=== PATIENT | male | born 1950 | race Caucasian/White ===

== ENCOUNTER 2016-08-24 05:51 | Inpatient (IN) | payer OTHER ==
[~2016-08-24] VITALS: Ht 172.7 cm; Wt 83.9 kg
[~2016-08-24 05:51] MED LIST: ALEVE220 MG PO; COLACE100 MG PO; COUMADIN2.5 MG PO; FEOSOL325 MG PO; FERROUS SULFAT325 MG PO; HYDROMORPHONE HC2 MG PO; LOVENOX30 MG/0.3 SC; MEPHYTON5 MG PO; PERCOCET 5/31 TABLET PO; VISTARIL25 MG PO; ZYLOPRIM100 MG PO
[2016-08-24 06:28] VITALS: BP 155/90
[2016-08-24] MEDS ORDERED: COUMADIN2.5 MG PO (09:58)
[2016-08-24] MEDS ORDERED: VISTARIL25 MG PO (09:58)
[2016-08-24] MEDS ORDERED: PERCOCET 5/31 TABLET PO (09:58)
[2016-08-24 11:45] VITALS: BP 108/90
[2016-08-24 15:40] VITALS: BP 137/78
[2016-08-24 19:54] VITALS: BP 143/83
[2016-08-24 23:47] VITALS: BP 130/77
[2016-08-25 03:47] VITALS: BP 112/67
[2016-08-25 05:53] LABS: HEMATOCRIT 33.1 % (38.0-50.0); MCV 92.2 FL (86-99)
[2016-08-25 06:20] LABS: ANION GAP 9 MEQ/L (2-14); CHLORIDE 100 MEQ/L (99-109); GFR ESTIMATE (CALCULATED) > 59 mL/min/; GLUCOSE 104 mg/dL (70-99); POTASSIUM 4.3 MEQ/L (3.7-5.4); SAMPLE HEMOLYSIS CHECK 0; SAMPLE ICTERIC CHECK 0; SAMPLE LIPEMIA CHECK 0; SODIUM 135 MEQ/L (136-147); UREA NITROGEN (BUN) 17 mg/dL (9-23)
[2016-08-25 06:22] LABS: PROTHROMBIN TIME 10.4 (9.2-11.2)
[2016-08-25 08:09] VITALS: BP 118/70
[2016-08-25 12:06] VITALS: BP 138/80
[2016-08-25 15:55] VITALS: BP 145/80
[2016-08-25 19:26] VITALS: BP 136/86
[2016-08-26 00:05] VITALS: BP 108/58
[2016-08-26 03:41] VITALS: BP 128/78
[2016-08-26 05:34] LABS: HEMATOCRIT 32.9 % (38.0-50.0); MCV 91.1 FL (86-99)
[2016-08-26 05:56] LABS: INTER. NORMALIZED RATIO 1.1; PROTHROMBIN TIME 11.7 (9.2-11.2)
[2016-08-26 12:33] VITALS: BP 140/89
[2016-08-26 15:14] VITALS: BP 129/78
== END 2016-08-26 15:15 | DRG 470 ==
LOC: 3WEST 05:51 → 2SOUTH 05:51 → 3WEST 10:50 → 2SOUTH 15:24 → 3WEST 08-26 15:15
PROVIDERS: Orthopaedic Surgery
PROC: 0SRC0J9 Replacement of Right Knee Joint with Synthetic Substitute, Cemented, Open Approach (ICD-10-PCS; principal; 2016-08-24)
DX: M17.11 Unilateral primary osteoarthritis, right knee (principal); M10.9 Gout, unspecified; Z96.651 Presence of right artificial knee joint
CPT/HCPCS: 36415; 71020; 80048; 85014; 85018; 85610; 86850; 86900; 86901; C1713; J0690; J1885; J2250; J2405; J7050; J7120

== ENCOUNTER 2016-09-04 05:42 | Inpatient (IN) | payer OTHER ==
[2016-09-04] VITALS (25 sets, daily range): BP systolic 66–122; BP diastolic 49–94
[~2016-09-04] VITALS: Ht 172.7 cm; Wt 92.4 kg
[2016-09-04 06:04] LABS: CREATININE 1.2 mg/dL (0.6-1.3); POTASSIUM 4.2 mEq/L (3.7-5.4)
[2016-09-04 06:18] LABS: CHLORIDE 106 mEq/L (99-109); POTASSIUM 4.3 mEq/L (3.7-5.4); SODIUM 136 mEq/L (136-147)
[2016-09-04 06:20] LABS: GLUCOSE 210 mg/dL (70-99)
[2016-09-04 06:22] LABS: ANION GAP 14 MEQ/L (2-14); TOTAL BILIRUBIN 0.7 mg/dL (0.0-1.0)
[2016-09-04 06:23] LABS: PTT 60.9 (25-32)
[2016-09-04 06:24] LABS: ALKALINE PHOSPHATASE 88 IU/L (3-129); GFR ESTIMATE (CALCULATED) > 59 mL/min/
[2016-09-04 06:25] LABS: UREA NITROGEN (BUN) 63 mg/dL (9-23)
[2016-09-04 06:27] LABS: LIPASE 19 U/L (1.0-51.0)
[2016-09-04 06:29] LABS: TROP-I INTERPRETATION NEGATIVE; TROPONIN-I < 0.01 ng/mL (0.0-0.30)
[2016-09-04 06:32] LABS: EOSINOPHIL (%) 0.7 % (0-5); EOSINOPHIL COUNT 0.1 K/uL (0-0.3); HEMATOCRIT 18.2 % (38.0-50.0); IMMATURE GRANULOCYTE (%) 0.7 % (0.0-0.7); IMMATURE GRANULOCYTE COUNT 0.8 K/uL; LYMPHOCYTE COUNT 1.7 K/uL (1.0-2.8); MCH 30.2 PG (29.0-34.0); MCHC 31.9 G/DL (30.0-36.0); MCV 94.8 FL (86-99); MEAN PLAT.VOLUME 9.4 uM^3 (9.0-12.4); MONOCYTE (%) 3.7 % (3-12); MONOCYTE COUNT 0.4 K/uL (0-0.8); NEUTROPHIL (%) 80.6 % (45-76); NEUTROPHIL COUNT 9.7 K/uL (1.8-6.4); PLATELET COUNT 656 K/uL (156-360); RBC DIS.WIDTH-CV 13.8 % (11.8-14.6); RBC DIS.WIDTH-SD 43.3 % (39-53); RED BLOOD COUNT 1.92 M/uL (4.00-5.50)
[2016-09-04 06:39] LABS: PROTHROMBIN TIME 61.1 (9.2-11.2)
[2016-09-04 06:40] LABS: INTER. NORMALIZED RATIO 5.7
[2016-09-04 10:23] LABS: ADD MIUA? NO; BILIRUBIN NEGATIVE; BLOOD NEGATIVE; COLOR YELLOW ((YELLOW)); GLUCOSE (STRIP) NEGATIVE; KETONES NEGATIVE; LEUKOCYTES NEGATIVE; NITRITE NEGATIVE; PROTEIN (STRIP) NEGATIVE; UCUL ADDED? NO
[2016-09-04 13:41] LABS: MAGNESIUM 1.8 mg/dL (1.3-2.7)
[2016-09-04 14:11] LABS: METH RESISTANT S AUREUS PCR NEGATIVE (NEGATIVE)
[2016-09-04 14:20] LABS: PROBE CHECK PASS; SPECIMEN PROCESSING CONTROL PASS
[2016-09-04] MEDS ORDERED: INDOCIN SR75 MG PO (14:44)
[2016-09-04 15:20] LABS: INTER. NORMALIZED RATIO 1.7; PROTHROMBIN TIME 18.1 (9.2-11.2)
[2016-09-04 18:32] LABS: HEMATOCRIT 23.1 % (38.0-50.0); MCV 87.2 FL (86-99)
[2016-09-04 18:51] LABS: POINT-OF-CARE METER ID UU13113803
[2016-09-05] VITALS (25 sets, daily range): BP systolic 97–134; BP diastolic 60–77
[2016-09-05 02:43] LABS: HEMATOCRIT 20.8 % (38.0-50.0); MCV 88.5 FL (86-99)
[2016-09-05 05:46] LABS: POINT-OF-CARE METER ID UU14162636
[2016-09-05 06:25] LABS: INTER. NORMALIZED RATIO 1.2; PROTHROMBIN TIME 12.2 (9.2-11.2)
[2016-09-05 06:30] LABS: PTT 23.8 (25-32)
[2016-09-05 06:40] LABS: ANION GAP 8 MEQ/L (2-14); CHLORIDE 110 MEQ/L (99-109); GFR ESTIMATE (CALCULATED) > 59 mL/min/; MAGNESIUM 1.9 mg/dl (1.3-2.7); POTASSIUM 4.2 MEQ/L (3.7-5.4); SAMPLE HEMOLYSIS CHECK 0; SAMPLE ICTERIC CHECK 0; SAMPLE LIPEMIA CHECK 0; SODIUM 140 MEQ/L (136-147); UREA NITROGEN (BUN) 35 mg/dL (9-23)
[2016-09-05 06:42] LABS: GLUCOSE 90 mg/dL (70-99)
[2016-09-05 08:12] LABS: EOSINOPHIL COUNT 0.1 K/uL (0-0.3); HEMATOCRIT 24.4 % (38.0-50.0); IMMATURE GRANULOCYTE (%) 0.9 % (0.0-0.7); IMMATURE GRANULOCYTE COUNT 0.1 K/uL; LYMPHOCYTE COUNT 1.4 K/uL (1.0-2.8); MCH 29.7 PG (29.0-34.0); MCV 87.5 FL (86-99); MEAN PLAT.VOLUME 8.9 uM^3 (9.0-12.4); MONOCYTE (%) 5.6 % (3-12); MONOCYTE COUNT 0.5 K/uL (0-0.8); NEUTROPHIL (%) 75.1 % (45-76); NEUTROPHIL COUNT 6.2 K/uL (1.8-6.4); NRBC (%) 0.8 /100 WBC (0-0); PLATELET COUNT 285 K/uL (156-360); RBC DIS.WIDTH-CV 15.4 % (11.8-14.6); RED BLOOD COUNT 2.79 M/uL (4.00-5.50); WHITE BLOOD COUNT 8.2 K/uL (4.1-10.2)
[2016-09-05 12:07] LABS: HEMATOCRIT 25.3 % (38.0-50.0); MCV 88.5 FL (86-99)
[2016-09-05 17:56] LABS: POINT-OF-CARE METER ID UU13113748
[2016-09-05 19:19] LABS: HEMATOCRIT 27.2 % (38.0-50.0); MCV 89.2 FL (86-99)
[2016-09-05 21:42] LABS: POINT-OF-CARE METER ID UU13113698
[2016-09-06 00:36] LABS: HEMATOCRIT 25.7 % (38.0-50.0); MCV 89.2 FL (86-99)
[2016-09-06 04:01] VITALS: BP 126/70
[2016-09-06 06:57] LABS: HEMATOCRIT 25.9 % (38.0-50.0); MCH 30.1 PG (29.0-34.0); MCHC 33.6 G/DL (30.0-36.0); MCV 89.6 FL (86-99); MEAN PLAT.VOLUME 9.2 uM^3 (9.0-12.4); NRBC (%) 1.1 /100 WBC (0-0); PLATELET COUNT 302 K/uL (156-360); RBC DIS.WIDTH-CV 16.2 % (11.8-14.6); RBC DIS.WIDTH-SD 49.5 % (39-53); RED BLOOD COUNT 2.89 M/uL (4.00-5.50); WHITE BLOOD COUNT 7.5 K/uL (4.1-10.2)
[2016-09-06 07:00] VITALS: BP 119/71
[2016-09-06 07:06] LABS: EOSINOPHIL (%) 1.3 % (0-5); EOSINOPHIL COUNT 0.1 K/uL (0-0.3); IMMATURE GRANULOCYTE (%) 0.7 % (0.0-0.7); IMMATURE GRANULOCYTE COUNT 0.1 K/uL; MONOCYTE (%) 6.6 % (3-12); MONOCYTE COUNT 0.5 K/uL (0-0.8); NEUTROPHIL (%) 77.6 % (45-76); NEUTROPHIL COUNT 5.8 K/uL (1.8-6.4)
[2016-09-06 07:24] LABS: ANION GAP 9 MEQ/L (2-14); CHLORIDE 107 MEQ/L (99-109); GFR ESTIMATE (CALCULATED) > 59 mL/min/; GLUCOSE 97 mg/dL (70-99); MAGNESIUM 2.1 mg/dl (1.3-2.7); POTASSIUM 3.8 MEQ/L (3.7-5.4); SAMPLE HEMOLYSIS CHECK 0; SAMPLE ICTERIC CHECK 0; SAMPLE LIPEMIA CHECK 0; SODIUM 141 MEQ/L (136-147)
[2016-09-06 07:26] LABS: UREA NITROGEN (BUN) 12 mg/dL (9-23)
[2016-09-06 11:30] VITALS: BP 113/71
[2016-09-06 11:44] LABS: POINT-OF-CARE METER ID UU13113698
[2016-09-06 12:24] LABS: HEMATOCRIT 29.4 % (38.0-50.0); MCV 90.5 FL (86-99)
[2016-09-06 16:00] VITALS: BP 125/71
[2016-09-06 19:24] VITALS: BP 123/63
[2016-09-06 23:52] VITALS: BP 133/76
[2016-09-07 05:19] VITALS: BP 131/88
[2016-09-07 06:34] LABS: POINT-OF-CARE METER ID UU13113698
[2016-09-07 07:03] LABS: HEMATOCRIT 28.9 % (38.0-50.0); MCH 29.7 PG (29.0-34.0); MCHC 32.9 G/DL (30.0-36.0); MCV 90.3 FL (86-99); PLATELET COUNT 327 K/uL (156-360); RBC DIS.WIDTH-SD 50.2 % (39-53)
[2016-09-07 07:10] LABS: EOSINOPHIL (%) 0.5 % (0-5); IMMATURE GRANULOCYTE (%) 0.3 % (0.0-0.7); LYMPHOCYTE COUNT 0.8 K/uL (1.0-2.8); MONOCYTE (%) 7.6 % (3-12); MONOCYTE COUNT 0.6 K/uL (0-0.8); NEUTROPHIL COUNT 6.6 K/uL (1.8-6.4)
[2016-09-07 07:26] LABS: ANION GAP 9 MEQ/L (2-14); CHLORIDE 101 MEQ/L (99-109); GFR ESTIMATE (CALCULATED) > 59 mL/min/; GLUCOSE 100 mg/dL (70-99); POTASSIUM 3.8 MEQ/L (3.7-5.4); SAMPLE HEMOLYSIS CHECK 0; SAMPLE ICTERIC CHECK 0; SAMPLE LIPEMIA CHECK 0; SODIUM 136 MEQ/L (136-147); UREA NITROGEN (BUN) 11 mg/dL (9-23)
[2016-09-07 07:47] VITALS: BP 139/81
[2016-09-07] MEDS ORDERED: PROTONIX40 MG PO (09:27)
[2016-09-07 11:48] LABS: POINT-OF-CARE USER ID NUTSLF44
== END 2016-09-07 13:29 | disposition home or self-care (01) | DRG 377 ==
LOC: EME → EDBD 05:42 → EME 05:42 → 4WEST 08:12 → 4EAST 08:12 → EDOF 08:12 → 4WEST 10:32 → 4EAST 09-05 19:53
PROVIDERS: Emergency Medicine; Internal Medicine; Internal Medicine Nephrology; Internal Medicine Pulmonary Disease
PROC: 30233N1 Transfusion of Nonautologous Red Blood Cells into Peripheral Vein, Percutaneous Approach (ICD-10-PCS; principal; 2016-09-04)
PROC: 30233K1 Transfusion of Nonautologous Frozen Plasma into Peripheral Vein, Percutaneous Approach (ICD-10-PCS; 2016-09-04)
PROC: 0DJ08ZZ Inspection of Upper Intestinal Tract, Via Natural or Artificial Opening Endoscopic (ICD-10-PCS; 2016-09-05)
DX: K25.0 Acute gastric ulcer with hemorrhage (principal); R57.1 Hypovolemic shock; D62 Acute posthemorrhagic anemia; J98.11 Atelectasis; K92.1 Melena; R79.1 Abnormal coagulation profile; E83.51 Hypocalcemia; D69.6 Thrombocytopenia, unspecified; G89.29 Other chronic pain; Z96.653 Presence of artificial knee joint, bilateral; T45.515A Adverse effect of anticoagulants, initial encounter; K44.9 Diaphragmatic hernia without obstruction or gangrene; K29.60 Other gastritis without bleeding; M10.9 Gout, unspecified; K57.30 Diverticulosis of large intestine without perforation or abscess without bleeding; T39.395A Adverse effect of other nonsteroidal anti-inflammatory drugs [NSAID], initial encounter; Z79.01 Long term (current) use of anticoagulants
CPT/HCPCS: 36415; 71010; 71275; 74177; 80047; 80048; 80053; 81003; 82948; 83605; 83690; 83735; 83880; 84100; 84484; 85014; 85018; 85025; 85027; 85610; 85730; 86850; 86900; 86901; 86920; 87040; 87641; 93005; 93971; 94799; 99281; 99285; C9113; J1170; J1815; J2543; J2765; J3010; J3370; J3430; J3475; J7050; J7120; P9016; P9017

== ENCOUNTER 2017-08-30 09:16 | Emergency (ER) | payer OTHER ==
[~2017-08-30] VITALS: Ht 172.7 cm; Wt 88.9 kg
[~2017-08-30 09:16] MED LIST changes: +INDOCIN SR75 MG PO; +PROTONIX40 MG PO
[2017-08-30 14:01] VITALS: BP 140/80
== END 2017-08-30 14:03 | disposition home or self-care (01) ==
LOC: EME 09:16
PROC: 2W39X1Z Immobilization of Left Upper Extremity using Splint (ICD-10-PCS; principal; 2017-08-30)
DX: S52.615A Nondisplaced fracture of left ulna styloid process, initial encounter for closed fracture (principal); V43.52XA Car driver injured in collision with other type car in traffic accident, initial encounter; Z96.651 Presence of right artificial knee joint
CPT/HCPCS: 73110; 99281; 99284